=== PATIENT | female | born 1980 | race Caucasian/White ===

== ENCOUNTER 2017-03-06 12:36 | Emergency (ER) | payer OTHER ==
[~2017-03-06] VITALS: Ht 154.9 cm; Wt 65.8 kg
--- NOTE | ~2017-03-06 | EKG ---
[place] [address] [facility] [place] [address] ELECTROCARDIOGRAM REPORT Name: JOSE C REYNOLDS [facility]: [facility] [id number] Admission: 03/06/17 Attend Phys: Discharge: 03/06/17 Date of : 84 Report #: [id number] THIS REPORT FOR: //name// [facility] ED Test Date: 2017-03-06 Test Time: 12:49:39 Pat Name: JOSE C REYNOLDS Department: Room: Gender: F Systems Lead: Lion PARMAR : 1980 Requested By: René Lagunas Order Number: [id number] MD: Krishna Bojorquez Measurements Intervals [place] Rate: 58 P: 24 KS: 150 QRS: 33 QRSD: 105 T: 25 QT: 418 QTc: 411 Interpretive Statements Sinus rhythm RSR' in V1 or V2, probably normal variant No previous ECG available for comparison Electronically Signed On 03-06-2017 21:19:52 CDT by Krishna Bojorquez [email or web address] <ELECTRONICALLY SIGNED> By: Krishna Bojorquez MD 03/06/17 2119 1249 1249 Krishna Bojorquez MD /DOMINGO
[2017-03-06] MEDS ORDERED: PROBIOTIC1 EAC1 PO (13:03)
[2017-03-06 13:11] LABS: ABSOLUTE NEUTROPHILS 3.3 thou/uL (1.4-8.2); BASOPHILS 0.7 % (0.0-2.0); EOSINOPHILS 1.3 % (0.0-3.0); HEMOGLOBIN 13.8 gm/dL (12.0-15.0); LYMPHOCYTES 31.4 % (24.0-44.0); MCHC 33.7 g/dL (28.0-37.0); MCV 86.1 fL (80.0-100.0); MONOCYTES 8.8 % (1.0-8.0); PLATELET COUNT 155 thou/uL (150-400); POLYS 57.8 % (36.0-66.0); RBC 4.76 mil/uL (4.20-5.00); RDW 13.2 % (10.5-14.5); WBC 5.8 thou/uL (4.0-11.0)
[2017-03-06 13:12] LABS: MANUAL DIFF NO
[2017-03-06 13:15] LABS: ANION GAP 10 mmol/L (7-16); BUN 10 mg/dL (7-18); CALCIUM 8.7 mg/dL (8.5-10.1); CHLORIDE 107 mmol/L (98-107); CO2 26 mmol/L (21-32); CREATININE 0.8 mg/dL (0.6-1.0); GLUCOSE 94 mg/dL (74-106); POTASSIUM 3.6 mmol/L (3.5-5.1); SODIUM 143 mmol/L (136-145)
[2017-03-06 13:22] LABS: ALBUMIN 4.1 g/dL (3.4-5.0); ALKALINE PHOSPHATASE 52 U/L (46-116); SGOT 23 U/L (15-37); SGPT 24 U/L (30-65); TOTAL BILIRUBIN 0.5 mg/dL (<0.1-1.0); TOTAL PROTEIN 7.2 g/dL (6.4-8.2); TROPONIN-I < 0.04 ng/mL (<0.04-0.07)
[2017-03-06 15:16] VITALS: BP 106/71
== END 2017-03-06 15:17 | disposition home or self-care (01) ==
LOC: ER 12:36
PROVIDERS: Physician Assistant
DX: R07.9 Chest pain, unspecified (principal)

== ENCOUNTER 2019-12-21 14:25 | Emergency (ER) | payer BC ==
[~2019-12-21] VITALS: Ht 157.5 cm; Wt 63.5 kg
[~2019-12-21 14:25] MED LIST: PROBIOTIC1 EAC1 PO
[2019-12-21 14:58] LABS: ABSOLUTE NEUTROPHILS 3.5 thou/uL (1.4-8.2); BASOPHILS 0.7 % (0.0-2.0); EOSINOPHILS 1.5 % (0.0-3.0); HEMATOCRIT 41.2 % (37.0-47.0); HEMOGLOBIN 13.5 gm/dL (12.0-15.0); LYMPHOCYTES 28.7 % (24.0-44.0); MCH 28.2 pg (26.0-34.0); MCHC 32.7 g/dL (28.0-37.0); MCV 86.2 fL (80.0-100.0); MONOCYTES 9.8 % (1.0-8.0); PLATELET COUNT 189 thou/uL (150-400); POLYS 59.3 % (36.0-66.0); RBC 4.78 mil/uL (4.20-5.00); RDW 13.2 % (10.5-14.5); WBC 5.9 thou/uL (4.0-11.0)
[2019-12-21] MEDS ORDERED: BUPROPION XL300 MG PO (15:05)
[2019-12-21] MEDS ORDERED: LO LOESTRIN FE1 EACH PO (15:05)
[2019-12-21 15:17] LABS: ANION GAP 10 mmol/L (7-16); BUN 14 mg/dL (7-18); CHLORIDE 104 mmol/L (98-107); CO2 26 mmol/L (21-32); GLUCOSE 96 mg/dL (74-106); POTASSIUM 3.5 mmol/L (3.5-5.1); SODIUM 140 mmol/L (136-145)
[2019-12-21 15:24] LABS: ALBUMIN 3.5 g/dL (3.4-5.0); MAGNESIUM 1.9 mg/dL (1.8-2.4); SGOT 17 U/L (15-37); SGPT 22 U/L (30-65); TOTAL BILIRUBIN 0.5 mg/dL (<0.1-1.0); TROPONIN-I <0.06 ng/mL (<0.06)
[2019-12-21 15:36] LABS: AMP/METHAMP Negative (Negative); BARBITURATES Negative (Negative); BENZODIAZEPINES Negative (Negative); COCAINE Negative (Negative); METHADONE Negative (Negative); OPIATES Negative (Negative); PCP Negative (Negative)
[2019-12-21 17:07] VITALS: BP 118/75
--- NOTE | 2019-12-23 09:40 | EKG ---
[facility] [place] [address] ELECTROCARDIOGRAM REPORT Name: JOSE C REYNOLDS Room #: [facility]#: [id number] Admission: 12/21/19 Attend Phys: Discharge: 12/21/19 Date of : 84 Report #: [id number] THIS REPORT FOR: cc: FAM - Family physician unknown FAM - Family physician unknown Hadley Emanuel MD [facility] THIS REPORT FOR: //name// [facility] ED Test Date: 2019-12-21 Test Time: 14:29:00 Pat Name: JOSE C REYNOLDS Department: Room: Gender: F Community Health Advisor: MYKE : 1980 Requested By: Rob Valdez Order Number: [id number] MD: Hadley Emanuel Measurements Intervals [place] Rate: 78 P: 55 [place]: 138 QRS: 44 QRSD: 100 T: 17 QT: 372 QTc: 424 Interpretive Statements Sinus rhythm RSR' in V1 or V2, right VCD Compared to ECG 03/06/2017 12:49:39 No significant change was found Electronically Signed On 12-23-2019 9:39:20 CDT by Hadley Emanuel [email or web address] <ELECTRONICALLY SIGNED> By: Hadley Emanuel MD, FACC 12/23/19 0939 1429 1429 Hadley Emanuel MD, [facility] /EPI
== END 2019-12-21 17:08 | disposition home or self-care (01) ==
LOC: ER 14:25
PROVIDERS: Emergency Medicine
DX: R07.89 Other chest pain (principal); R14.2 Eructation; F17.210 Nicotine dependence, cigarettes, uncomplicated; Z79.899 Other long term (current) drug therapy